=== PATIENT | male | born 1965 | race Caucasian/White ===

== ENCOUNTER 2020-11-19 07:34 | Emergency (ER) | payer MEDICAID, SELFPAY ==
[~2020-11-19] VITALS: Ht 185.4 cm; Wt 83.9 kg
[2020-11-19 07:42] VITALS: BP 150/114
[2020-11-19] MEDS ORDERED: ATRO1TAB PO (08:03)
--- NOTE | 2020-11-19 08:10 | NUR ---
NOVEL SWAB DONE AND WALKED TO LAB.
[2020-11-19 08:18] VITALS: BP 150/114
--- NOTE | 2020-11-19 08:19 | NUR ---
Patient discharged with v/s stable. Written and verbal after care instructions given and explained. Patient alert, oriented and verbalized understanding of instructions. Ambulatory with steady gait. All questions addressed prior to discharge. ID band removed. Patient advised to follow up with PMD. Rx of LOMOTIL given. Patient educated on indication of medication including possible reaction and side effects. Opportunity to ask questions provided and answered.
== END 2020-11-19 08:19 | disposition home or self-care (01) ==
LOC: MED 07:34
DX: R19.7 Diarrhea, unspecified (principal); Z20.822 Contact with and (suspected) exposure to COVID-19; F12.90 Cannabis use, unspecified, uncomplicated; Z79.899 Other long term (current) drug therapy
CPT/HCPCS: 99283; U0003

== ENCOUNTER 2020-11-21 10:19 | Emergency (ER) | payer MEDICAID, SELFPAY ==
[~2020-11-21] VITALS: Ht 185.4 cm; Wt 83.9 kg
[~2020-11-21 10:19] MED LIST: ATRO1TAB PO
[2020-11-21 10:27] VITALS: BP 132/80
--- NOTE | 2020-11-21 10:34 | NUR ---
[facility].
--- NOTE | 2020-11-21 10:35 | NUR ---
C/O COUGH, GENERALIZED WEAKNESS, NAUSEA, 8/10 BODY ACHE X YESTERDAY. SEEN HERE FOR DIARRHEA. DENIES DIARRHEA TODAY. COVID PCR TESTED YESTERDAY : RENDING. O2 SAT 95 AT THIS TIME. PMH: DENIES
--- NOTE | 2020-11-21 11:04 | NUR ---
Patient being evaluated by DR GAMBOA at [facility].
[2020-11-21] MEDS ORDERED: PRED20TA5 PO (11:26)
[2020-11-21] MEDS ORDERED: IBUP-2213 PO (11:26)
[2020-11-21 13:49] VITALS: BP 132/80
== END 2020-11-21 13:49 | disposition home or self-care (01) ==
LOC: MED 10:19
DX: U07.1 COVID-19 (principal); Z79.899 Other long term (current) drug therapy
CPT/HCPCS: 99283

== ENCOUNTER 2020-11-28 19:02 | Inpatient (IN) | payer MEDICAID, SELFPAY ==
[~2020-11-28] VITALS: Ht 175.3 cm; Wt 65.8 kg
[~2020-11-28 19:02] MED LIST changes: +IBUP-2213 PO; +PRED20TA5 PO
[2020-11-28 19:25] VITALS: BP 134/94
--- NOTE | 2020-11-28 19:25 | NUR ---
BIBA TO ER BED 1
--- NOTE | 2020-11-28 19:30 | NUR ---
PATIENT BIBA FROM HOME FOR C/O INTERMITTENT SOB X 2 DAYS. PER PATIENT TESTED COVID + ON 11/19/20. PATINT STATES, "I FEEL SHORT OF BREATH RANDOMLY WHEN I TAKE A DEEP BREATH AND I GOT WORRIED." PATIENT STATES HAS BEEN FEELING SYMPTOMS OF SOB X 2 DAYS. DENIES CP OR N/V/D. ADMITS TO DECREASED APPITTIE. DENIES MEDICAL HX., "I HAVENT SEEN A DOCTOR IN YEARS SO I DON'T KNOW." PATIENT ADMITS TO SMOKING METH AND LAST TIME HE SMOKED METH WAS X 2 WEEKS AGO. MEDHX: DENIES NKA
--- NOTE | 2020-11-28 19:40 | NUR ---
PATIENT @ 91% ON RA. PATIENT PLACED ON 2L NC AND 02SAT @ 97%.
--- NOTE | 2020-11-28 19:48 | NUR ---
BLOOD LABS AND FLU SWAB COLLECTED AND GIVEN TO CLINICAL STAFF ANESTHESIOLOGISTRobin BURLESON. PATIENT STATES UNABLE TO GIVE URINE AT THIS TIME. URINAL LEFT AT BEDSIDE.
--- NOTE | 2020-11-28 19:57 | NUR ---
XRAY AT BEDSIDE.
[2020-11-28 20:00] LABS: BASOPHILS % (AUTO) 0.1 % (0.0-2.0); EOSINOPHILS % (AUTO) 0.3 % (0.0-4.0); HEMATOCRIT 41.5 % (36-52); LYMPHOCYTES # (AUTO) 0.7 K/uL (2.0-11.5); LYMPHOCYTES % (AUTO) 7.6 % (20.5-51.1); MEAN CORPUSCULAR HEMOGLOBIN 29 pg (27-31); MEAN CORPUSCULAR HGB CONC 34 g/dL (33-37); MEAN CORPUSCULAR VOLUME 87.1 fL (80-94); MONOCYTES # (AUTO) 1.3 K/uL (0.8-1.0); MONOCYTES % (AUTO) 13.1 % (1.7-9.3); NEUTROPHILS # (AUTO) 7.6 K/uL (1.8-7.7); NEUTROPHILS % (AUTO) 78.9 % (42.2-75.2); PLATELET COUNT (AUTO) 613 K/uL (140-450); RED BLOOD CELL COUNT(AUTO) 4.77 MIL/uL (4.20-6.10); RED CELL DISTRIBUTION WIDTH 13.2 % (11.6-13.7); WHITE BLOOD COUNT (AUTO) 9.6 K/uL (4.8-10.8)
[2020-11-28 20:25] LABS: ALBUMIN 3.2 g/dL (3.4-5.0); ANION GAP 11.1 (8-16); CARBON DIOXIDE 28.5 mmol/L (21-32); CREATININE 0.9 mg/dL (0.6-1.3); POTASSIUM 3.6 mmol/L (3.5-5.1); TOTAL BILIRUBIN 0.7 mg/dL (0.0-1.0)
[2020-11-28] MEDS ORDERED: ACETAMINOPHEN 325 MG TAB PO PRN (21:15)
[2020-11-28] MEDS ORDERED: DOCUSATE SODIUM 100 MG GELCAP PO PRN (21:15)
[2020-11-28] MEDS ORDERED: ALBUTEROL HFA MDI 90 MCG/ACTUATION 8 GM INH PRN (21:15)
[2020-11-28] MEDS ORDERED: guaiFENesin DM 200/20 MG-10 ML 10 ML UDC PO PRN (21:15)
[2020-11-28] MEDS ORDERED: ONDANSETRON 4 MG/2 ML VIAL IM/IVP PRN (21:15)
[2020-11-28] MEDS ORDERED: HYDROcodone/APAP 7.5/325 MG 1 TAB PO PRN (21:15)
[2020-11-28] MEDS ORDERED: ZOLPIDEM 5 MG TAB PO PRN (21:15)
[2020-11-28] MEDS ORDERED: POTASSIUM CHLORIDE 10 MEQ TABER PO PRN (21:15)
--- NOTE | 2020-11-28 21:36 | NUR ---
ADMINISTERED ALB MDI 2 PUFFS. PT STABLE WITH NO ADVERSE REACTIONS
[2020-11-28] MEDS ORDERED: cefTRIAXone 1,000 MG VIAL ONE (22:00)
[2020-11-28 22:03] LABS: CHOL/HDL RATIO 3.3 (1-4.5); FREE T4 (FREE THYROXINE) 1.3 ng/dL (0.76-1.46); MAGNESIUM 1.8 mg/dL (1.8-2.4); PHOSPHORUS 2.8 mg/dL (2.5-4.9); THYROID STIMULATING HORMONE 0.89 uIU/mL (0.34-3.74)
[2020-11-28 22:09] LABS: APPEARANCE,URINE CLEAR (CLEAR); BILIRUBIN,URINE 1+ (NEGATIVE); BLOOD, URINE NEGATIVE (NEGATIVE); LEUKOCYTE ESTERASE ,URINE NEGATIVE (NEGATIVE); NITRITE, URINE NEGATIVE (NEGATIVE); UGLUCOSE NEGATIVE (NEGATIVE)
[2020-11-28] MEDS: AZITHROMYCIN 250 MG TAB PO SCH (22:11)
[2020-11-28 22:12] LABS: COLOR,URINE AMBER (YELLOW)
[2020-11-28 22:24] LABS: BARBITURATE, URINE NEGATIVE ng/ml (NEG <=200); BENZODIAZEPINE, URINE NEGATIVE ng/mL (NEG <=200); CANNABINOID, URINE NEGATIVE ng/mL (NEG <=50); COCAINE, URINE NEGATIVE ng/mL (NEG <=300); OPIATE, URINE NEGATIVE ng/mL (NEG <=2000); PHENCYCLIDINE SCREEN,URINE NEGATIVE ng/mL (NEG <=25)
[2020-11-28] MEDS: NACL 0.9% 1,000 ML IV SCH (22:30)
--- NOTE | 2020-11-28 22:30 | NUR ---
SPOKE WITH TICKET DISPENSER CHANGER TO CALL [facility] TO MIX AND PREPARE REMDESIVIR. PER PATIENT TO BE GIVEN THOMAS NOT IN AM.
[2020-11-28] MEDS ORDERED: remdesivir CLINICAL MONITORING 1 EA MISC MC PRN (23:50)
[2020-11-28] MEDS ORDERED: REMDESIVIR. 200 MG in NACL 0.9% 100 ML IV ONE (23:50)
--- NOTE | 2020-11-29 00:04 | NUR ---
PATIENT GIVEN TURKEY SANDWICH, JUICE, AND JELLO. PATIENT REMAINS ON TECHNOLOGY PROGRAM MANAGER. VSS. PATIENT REMAINS ON 2L NC. PATIENT DENIES SOB AT THIS TIME.
--- NOTE | 2020-11-29 00:18 | NUR ---
RECIVED CALL FROM [facility] THAT REM[facility]IV[facility] IS READY FOR [facility].
--- NOTE | 2020-11-29 01:26 | NUR ---
Patient remains on cardiac technologist. Vital Signs within normal limits. No SOB noted, respirations even and unlabored. [place] states, "I feel a lot better." O2sat @ 94% on 2L NC. IV site ramins patient. Patient bed is locked and in lowest postion. Urinal remains at bedside.
--- NOTE | 2020-11-29 02:16 | NUR ---
Patient appears to be resting comfortably in bed. Patient remains on property assessment monitor. Vital Signs within normal limits. Respirations even and unlabored. O2sat @ 97% on 2L NC. Patient responsive to verbal stimuli. IVF running as ordered, IV site ramins patient. Patient bed is locked and in lowest postion.
--- NOTE | 2020-11-29 05:42 | NUR ---
Patient appears to be resting comfortably in bed. Vital Signs within normal limits. Respirations even and unlabored.
[2020-11-29 06:51] LABS: BASOPHILS % (AUTO) 0.1 % (0.0-2.0); EOSINOPHILS % (AUTO) 0.1 % (0.0-4.0); HEMATOCRIT 37.8 % (36-52); HEMOGLOBIN 13.2 g/dL (12.0-18.0); LYMPHOCYTES # (AUTO) 0.6 K/uL (2.0-11.5); LYMPHOCYTES % (AUTO) 9.4 % (20.5-51.1); MEAN CORPUSCULAR HEMOGLOBIN 30 pg (27-31); MEAN CORPUSCULAR HGB CONC 35 g/dL (33-37); MEAN CORPUSCULAR VOLUME 85.5 fL (80-94); MONOCYTES # (AUTO) 0.7 K/uL (0.8-1.0); MONOCYTES % (AUTO) 10.1 % (1.7-9.3); NEUTROPHILS # (AUTO) 5.2 K/uL (1.8-7.7); NEUTROPHILS % (AUTO) 80.3 % (42.2-75.2); PLATELET COUNT (AUTO) 547 K/uL (140-450); RED BLOOD CELL COUNT(AUTO) 4.42 MIL/uL (4.20-6.10); RED CELL DISTRIBUTION WIDTH 13.4 % (11.6-13.7); WHITE BLOOD COUNT (AUTO) 6.5 K/uL (4.8-10.8)
--- NOTE | 2020-11-29 06:57 | NUR ---
Patient responsive to verbal stimuli. Patient remains on desk monitor. Vital Signs within normal limits. Patient on 1L of O2, O2SAT @ 98% on RA. Respirations even and unlabored. Patient denies any SOB. Patient's urinal empitied, 700ml of primitivo urine noted. Patient IV site remains patient, IVF reuuning as ordered. Patient denies pain at this time. Bed is locked and in lowest postion. Patient given blanket for extra comfort.
--- NOTE | 2020-11-29 07:11 | NUR ---
RECEIVED REPORT FROM NNEKA BORJAS. TRANSFER OF CARE AT THIS TIME.
[2020-11-29 07:14] LABS: ALBUMIN 2.7 g/dL (3.4-5.0); ANION GAP 11.2 (8-16); CARBON DIOXIDE 28.1 mmol/L (21-32); POTASSIUM 4.3 mmol/L (3.5-5.1); TOTAL BILIRUBIN 0.4 mg/dL (0.0-1.0)
--- NOTE | 2020-11-29 07:18 | NUR ---
PT SLEEPING, VISIBLE EQUAL RISE AND FALL OF CHEST, VSS, WILL CONTINUE TO MONITOR.
--- NOTE | 2020-11-29 07:37 | NUR ---
CALLED [facility] SPOKE WITH NNEKA OBREGON, PER SABAS STILL RECEIVING REPORT ASKING TO GET A CALL BACK IN A FEW MINUTES.
--- NOTE | 2020-11-29 07:53 | NUR ---
RECEIVED REPORT FROM ER NURSE ZULY, PT CAME WITH COMPLAINT OF SOB, PT IS NEGATIVE FOR RAPID COVID TEST, PCR WAS DONE IN ER, RESULTS ARE PENDING.PT IS ALERT ORIENTED X 4, IV ACCESS ON RIGHT AC 20 GAUAGE NS AT 60 ML/HR. PT IS RECEIVING 2 L OF OXYGEN. LATEST O2 SAT IS 92 %. PT HAS HIGH PLATELET COUNT, PT RECEIVED HEPARIN. VITALS ARE STABLE.
--- NOTE | 2020-11-29 07:56 | NUR ---
GAVE REPORT TO NNEKA OBREGON FOR PENDING TRANSFER. ETA 10 MINUTES.
--- NOTE | 2020-11-29 08:14 | NUR ---
Patient will be admitted to care of DR. SHANIA MANE. Admited to [facility]. Will go to room 118. Belongings list completed. Report to NNEKA OBREGON.
[2020-11-29] MEDS ORDERED: COMMUNICATION ORDER MC SCH (09:00)
--- NOTE | 2020-11-29 09:30 | NUR ---
PT RECEIVED FROM ER VIA KANWAL, DIRECTED THE PT TO THE ROOM, CONNECTED TO THE IV, CHANGED THE GOWN AND WARM BLANKET PROVIDED. MRSA SAMPLE TAKEN AND SENT TO THE LAB. PT DENIES ANY PAIN AT THE MOMENT, NO COUGH. PT IS ON 2 L O2 O2 SAT IS 95% AT THE MOMENT. FOOD PROVIDED AND WATER PROVIDED. WILL CONTINUE TO MONITOR PT.
[2020-11-29] MEDS: PANTOPRAZOLE 40 MG TABEC PO SCH (09:36)
[2020-11-29] MEDS: ASCORBIC ACID 500 MG TAB PO SCH (09:37)
[2020-11-29] MEDS: ZINC SULF 220 MG CAP PO SCH (09:37)
--- NOTE | 2020-11-29 12:00 | NUR ---
PT IS IN THE B ED DENIES PAIN AND DISCOMFORT. PT FINISHED HIS FOOD. WILL CONTINUE TO MONITOR
[2020-11-29] MEDS: NACL 0.9% 1,000 ML IV SCH (13:55)
[2020-11-29 16:51] VITALS: BP 136/80
[2020-11-29 20:00] VITALS: BP 132/89
[2020-11-29] MEDS: AZITHROMYCIN 250 MG TAB PO SCH (20:46)
[2020-11-29] MEDS: REMDESIVIR. 100 MG in NACL 0.9% 100 ML IV SCH (23:52)
[2020-11-30] VITALS: BP 130/82
[2020-11-30 04:00] VITALS: BP 129/82
[2020-11-30] MEDS: NACL 0.9% 1,000 ML IV SCH ×2 (06:35→21:22)
[2020-11-30 07:07] LABS: LYMPHOCYTES # (AUTO) 0.9 K/uL (2.0-11.5); LYMPHOCYTES % (AUTO) 7.7 % (20.5-51.1); MEAN CORPUSCULAR HEMOGLOBIN 30 pg (27-31); MEAN CORPUSCULAR HGB CONC 34 g/dL (33-37); MEAN CORPUSCULAR VOLUME 86.8 fL (80-94); MONOCYTES # (AUTO) 1.1 K/uL (0.8-1.0); MONOCYTES % (AUTO) 9.7 % (1.7-9.3); NEUTROPHILS # (AUTO) 9.4 K/uL (1.8-7.7); NEUTROPHILS % (AUTO) 82.6 % (42.2-75.2); PLATELET COUNT (AUTO) 638 K/uL (140-450); RED BLOOD CELL COUNT(AUTO) 4.38 MIL/uL (4.20-6.10); RED CELL DISTRIBUTION WIDTH 12.9 % (11.6-13.7); WHITE BLOOD COUNT (AUTO) 11.4 K/uL (4.8-10.8)
[2020-11-30 07:21] LABS: ALBUMIN 2.7 g/dL (3.4-5.0); ANION GAP 11.9 (8-16); CARBON DIOXIDE 28.8 mmol/L (21-32); CREATININE 0.9 mg/dL (0.6-1.3); POTASSIUM 5.7 mmol/L (3.5-5.1); TOTAL BILIRUBIN 0.3 mg/dL (0.0-1.0)
--- NOTE | 2020-11-30 07:33 | NUR ---
RECEIVED REPORT FROM NIGHT NURSE PT IS IN THE BED, ALERT ORIENTED X 4, DENIES PAIN AND DISCOMFORT AT THE MOMENT. IN DROPLET PRECAUTION DUE TO PENDING PCR. PT HAD COVID TWO WEEKS AGO, IS NEGATIVE ON RAPID. POC IS DISCUSSED WILL CONTINUE TO MONITOR PT.
[2020-11-30 08:00] VITALS: BP 130/84
[2020-11-30] MEDS: ZINC SULF 220 MG CAP PO SCH (08:23)
[2020-11-30] MEDS: PANTOPRAZOLE 40 MG TABEC PO SCH (08:23)
[2020-11-30] MEDS: ASCORBIC ACID 500 MG TAB PO SCH (08:24)
--- NOTE | 2020-11-30 08:33 | NUR ---
ADMINISTERED ALL THE PRESCRIBED MEDICATIONS PER MD ORDER. PT IS EATING BREAKFAST, O2 SAT IS 94% AT THE MOMENT. PT DENIES PAIN AND DISCOMFORT.
--- NOTE | 2020-11-30 11:30 | NUR ---
PT IS IN THE BED, NO SOB NOTED, DENIES PAIN AND DISCOMFORT.
--- NOTE | 2020-11-30 15:00 | NUR ---
ASSISTED THE PT TO USE THE REST ROOM, DISCONNECTED FROM IV AND RECONNECTED AFTER PT IS DONE. NO SOB NOTED.
[2020-11-30 16:00] VITALS: BP 133/84
--- NOTE | 2020-11-30 19:22 | NUR ---
ENDORSED THE NIGHT NURSE CONTINUITY OF CARE PT IS STABLE
--- NOTE | 2020-11-30 19:35 | NUR ---
Assumed care. A/O. Able to verbalize needs. In no acute distress, respiratory or otherwise. Will administer PM medications. Will provide with nourishments, water. Will check vital signs. Will settle in for the night. Will continue to monitor.
[2020-11-30 20:00] VITALS: BP 123/82
[2020-11-30] MEDS: AZITHROMYCIN 250 MG TAB PO SCH (21:14)
[2020-11-30] MEDS: REMDESIVIR. 100 MG in NACL 0.9% 100 ML IV SCH (23:53)
[2020-12-01 04:00] VITALS: BP 128/86
[2020-12-01 06:00] LABS: BASOPHILS % (AUTO) 0.1 % (0.0-2.0); EOSINOPHILS % (AUTO) 0.3 % (0.0-4.0); HEMATOCRIT 38.1 % (36-52); LYMPHOCYTES # (AUTO) 1.3 K/uL (2.0-11.5); LYMPHOCYTES % (AUTO) 9.2 % (20.5-51.1); MEAN CORPUSCULAR HEMOGLOBIN 30 pg (27-31); MEAN CORPUSCULAR HGB CONC 34 g/dL (33-37); MEAN CORPUSCULAR VOLUME 86.8 fL (80-94); MONOCYTES # (AUTO) 1.5 K/uL (0.8-1.0); NEUTROPHILS # (AUTO) 11.7 K/uL (1.8-7.7); NEUTROPHILS % (AUTO) 80.4 % (42.2-75.2); PLATELET COUNT (AUTO) 708 K/uL (140-450); RED BLOOD CELL COUNT(AUTO) 4.39 MIL/uL (4.20-6.10); RED CELL DISTRIBUTION WIDTH 13.2 % (11.6-13.7); WHITE BLOOD COUNT (AUTO) 14.6 K/uL (4.8-10.8)
[2020-12-01 06:27] LABS: ALBUMIN 2.7 g/dL (3.4-5.0); ANION GAP 13.9 (8-16); CARBON DIOXIDE 28.1 mmol/L (21-32); CREATININE 0.9 mg/dL (0.6-1.3); TOTAL BILIRUBIN 0.3 mg/dL (0.0-1.0)
--- NOTE | 2020-12-01 07:10 | NUR ---
RECEIVE REPORT FROM ADMINISTRATIVE OFFICE SPECIALIST NURSE FOR CONTINUITY OF CARE. PATIENT AWAKE AND ALERT. PATIENT ON 2L NC. NO ACUTE DISTRESS NOTED. CALL LIGHT WITHIN REACH. ALL SAFETY MEASURES IN PLACE. WILL CONTINUE TO MONITOR.
[2020-12-01 08:00] VITALS: BP 122/78
[2020-12-01] MEDS: PANTOPRAZOLE 40 MG TABEC PO SCH (08:13)
[2020-12-01] MEDS: ZINC SULF 220 MG CAP PO SCH (08:13)
[2020-12-01] MEDS: ASCORBIC ACID 500 MG TAB PO SCH (08:13)
--- NOTE | 2020-12-01 08:20 | NUR ---
PATIENT AWAKE AND ALERT. NO ACUTE DISTRESS NOTED. PATIENT ON 2L NC O2 SATING AT 90%. ALL SAFETY MEASURES IN PLACE. CALL LIGHT WITHIN REACH. WILL CONTINUE TO MONITOR.
--- NOTE | 2020-12-01 09:20 | NUR ---
PATIENT ACCIDENTLY PULLED OUT IV. CATHETER INTACT. WILL ATTEMPT TO INSERT NEW ONE.
[2020-12-01] MEDS ORDERED: DEC1 PO (10:55)
[2020-12-01] MEDS ORDERED: ASPI-1205 PO (10:55)
[2020-12-01] MEDS ORDERED: AZIT250T3 PO (10:55)
[2020-12-01] MEDS ORDERED: CEPH250C16 PO (10:55)
--- NOTE | 2020-12-01 11:48 | NUR ---
PATIENT AWAKE AND ALERT. NO ACUTE DISTRESS NOTED. PATIENT ON 2L NC O2 SATING AT 90%. PATIENT DENIES PAIN AT THIS TIME. ALL SAFETY MEASURES IN PLACE. CALL LIGHT WITHIN REACH. WILL CONTINUE TO MONITOR.
--- NOTE | 2020-12-01 14:15 | NUR ---
PATIENT AWAKE AND ALERT. NO ACUTE DISTRESS NOTED. PATIENT ON ROOM AIR. PATIENT O2 SATING AT 90%. ALL SAFETY MEASURES IN PLACE. CALL LIGHT WITHIN REACH. WILL CONTINUE TO MONITOR.
[2020-12-01] MEDS: NACL 0.9% 1,000 ML IV SCH (15:55)
--- NOTE | 2020-12-01 16:03 | NUR ---
PATIENT AWAKE AND ALERT. NO ACUTE DISTRESS NOTED. PATIENT ON ROOM AIR. PATIENT O2 SATING AT 91%. ALL SAFETY MEASURES IN PLACE. CALL LIGHT WITHIN REACH. WILL CONTINUE TO MONITOR.
--- NOTE | 2020-12-01 18:29 | NUR ---
PATIENT AWAKE AND ALERT. NO ACUTE DISTRESS NOTED. VS STABLE. PATIENT ON ROOM AIR. PATIENT O2 SATING 92%. PATIENT DENIES PAIN. DISCHARGE INFORMATION GIVEN. PATIENT VERBALIZE UNDERSTANDING. WRISTBAND AND IV REMOVED. IV CATHETER INTACT. PATIENT PICKED UP BY FRIEND.
== END 2020-12-01 18:29 | disposition home or self-care (01) | DRG 137 ==
LOC: MED 19:02 → MMU 21:09 → MTU 11-29 06:38
PROVIDERS: ADMIT Family Medicine; ATTEND Family Medicine
PROC: XW033E5 Introduction of Remdesivir Anti-infective into Peripheral Vein, Percutaneous Approach, New Technology Group 5 (ICD-10-PCS; principal; 2020-11-28)
DX: U07.1 COVID-19 (principal); J96.01 Acute respiratory failure with hypoxia; J12.82 Pneumonia due to coronavirus disease 2019; E43 Unspecified severe protein-calorie malnutrition; E87.1 Hypo-osmolality and hyponatremia; Z68.21 Body mass index [BMI] 21.0-21.9, adult
CPT/HCPCS: 36415; 71045; 80053; 80305; 81003; 82150; 83036; 83605; 83615; 83690; 83735; 83880; 84100; 84436; 84439; 84443; 84479; 84484; 85025; 85379; 85610; 85651; 85730; 86140; 86886; 86900; 86901; 87040; 87081; 87804; 93005; 94664; 96365; 99285; J0696; J1644; J7060; U0003